=== PATIENT | female | born 1985 | race Caucasian/White ===

== ENCOUNTER → 2021-08-23 09:37 | Outpatient (REF) | payer BC, SELFPAY ==
--- NOTE | 2021-08-23 12:02 | ECG_ITS ---
Test Reason : E65 PRE OP Blood Pressure : / mmHG Vent. Rate : 083 BPM Atrial Rate : 083 BPM P-R Int : 136 ms QRS Dur : 076 ms QT Int : 370 ms P-R-T Axes : 062 073 045 degrees QTc Int : 434 ms Normal sinus rhythm with sinus arrhythmia Normal ECG No previous ECGs available Referred By: Shahid Cross Electronically Signed By:FARAZ LEWIS MD
== END ==
LOC: HO.CARD 09:37
PROVIDERS: PCP Family Medicine; Visit Provider Plastic Surgery
DX: E65 Localized adiposity (principal)
CPT/HCPCS: 93005

== ENCOUNTER 2021-09-06 10:21 | Outpatient (REF) | payer BC, SELFPAY ==
[2021-09-06 12:27] LABS: MANUAL DIFF FLAG NO
[2021-09-06 12:31] LABS: Basophils Absolute Auto 0.1 X10*3/uL (0.0-0.2); Basophils Percent Auto 0.6 % (0-2); Eosinophils Absolute Auto 0.2 X10*3/uL (0.0-0.4); Eosinophils Percent Auto 2.5 % (0-4); Hematocrit 42.1 % (37.0-47.0); Imm Gran Abs Auto 0.02 X10*3/uL (0.00-0.03); Imm Gran Pct Auto 0.3 % (0.0-0.4); Lymphocytes Absolute Auto 2.4 X10*3/uL (1.2-4.9); Lymphocytes Percent Auto 29.9 % (20-40); Mean Corpuscular HGB Conc 33.3 g/dl (31.0-35.0); Mean Corpuscular Hemoglobin 29.6 pg (27.0-33.0); Mean Platelet Volume 10.6 fL (9.4-12.3); Monocytes Absolute Auto 0.6 X10*3/uL (0.1-1.2); Monocytes Percent Auto 7.6 % (2-11); Neutrophils Absolute Auto 4.7 x10*3/uL (2.0-8.3); Neutrophils Percent Auto 59.1 % (45-73); Platelet Count 274 X10*3/uL (160-400); Red Blood Count 4.73 X10*6/uL (4.20-5.50); White Blood Count 7.9 X10*3/uL (4.8-10.8)
[2021-09-06 12:42] LABS: Appearance Urine CLEAR; Color Urine YELLOW; Glucose Urine UA NEG (NEG); Leukocyte Esterase Urine TRACE (NEG); Nitrite Urine NEG (NEG); Specific Gravity - Urine <= 1.005 (1.005-1.025); Urine Blood 3+ (NEG); Urine Ketones NEG (NEG); Urine Protein NEG (NEG-TRACE)
[2021-09-06 12:54] LABS: Squamous Epithelial Cell Urine 1+ /LPF
[2021-09-06 12:55] LABS: Bacteria Urine TRACE /LPF; RBC Urine 0-2 /HPF (0); WBC Urine 0-2 /HPF (0-4)
== END 2021-09-06 10:22 | disposition home or self-care (01) ==
LOC: HO.HMGCLDS 10:21
PROVIDERS: PCP Family Medicine; Visit Provider Plastic Surgery
DX: E65 Localized adiposity (principal)
CPT/HCPCS: 36415; 81001; 85025